=== PATIENT | male | born 2000 | race Hispanic/Latino ===

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

== ENCOUNTER 2019-12-15 23:19 | Emergency (ER) | payer SELFPAY | END 2019-12-16 00:45 | disposition home or self-care (01) | LOC: ERS 23:19 | DX: S09.21XA Traumatic rupture of right ear drum, initial encounter (principal); H60.91 Unspecified otitis externa, right ear; F17.210 Nicotine dependence, cigarettes, uncomplicated; W22.8XXA Striking against or struck by other objects, initial encounter | CPT/HCPCS: 99282 ==